=== PATIENT | male | born 1945 | race Hispanic/Latino ===

== ENCOUNTER 2023-02-17 16:38 | Inpatient (IN) | payer MEDICARE, MEDICAID ==
[2023-02-17 17:24] LABS: #Monocytes 0.9 thou/uL (0.11-0.59); #Neutrophils 7.9 thou/uL (1.40-6.50); %Basophils 0.2 % (0.0-1.0); %Eosinophils 0.4 % (0.0-10.0); %Lymphocytes 15.6 % (21.0-51.0); %Monocytes 8.7 % (0.0-10.0); %Neutrophils 74.8 % (42.0-75.0); Hemoglobin 15.6 g/dL (14.0-18.0); Mean Corpuscular HGB CONC 32.7 g/dL (32.0-36.0); Mean Corpuscular Hemoglobin 26.7 pg (27.0-31.0); Mean Corpuscular Volume 81.7 fl (78.0-98.0); Mean Platelet Volume 9.9 fL (7.4-10.4); Platelet Count 259 10x3/uL (130-400); RBC Distribution Width 14.8 % (11.5-14.5); Red Blood Cell (RBC) Count 5.84 mill/uL (4.70-6.10); White Blood Cell (WBC) Count 10.5 10x3/uL (4.8-10.8)
[2023-02-17 18:04] LABS: ALT (SGPT) 13 U/L (8-55); AST (SGOT) 18 U/L (5-34); Albumin 4.4 g/dL (3.4-4.8); Alkaline Phosphatase 51 U/L (40-110); Anion Gap 19 mmol/L (10-20); BUN (Urea Nitrogen) 36 mg/dL (8.4-25.7); Bilirubin, Total 1.2 mg/dL (0.2-1.2); CK (CPK) 107 U/L (30-200); Calc. Creatinine Clearance 0 mL/min (70-130); Calcium 10.2 mg/dL (7.8-10.44); Carbon Dioxide 22 mmol/L (23-31); Chloride 103 mmol/L (98-107); Estimated GFR 45; Globulin 3.4 g/dL (2.4-3.5); Glucose 88 mg/dL (83-110); Potassium 4.5 mmol/L (3.5-5.1); Protein, Total 7.8 g/dL (5.8-8.1); Sodium 139 mmol/L (136-145)
[2023-02-17 18:09] LABS: CKMB 1.7 ng/mL (0-6.6)
[2023-02-17] MEDS ORDERED: Aspirin Chewable 81 MG TAB ONE (18:29)
[2023-02-17] MEDS ORDERED: Ondansetron ODT 4 MG TAB PO PRN (19:20)
[2023-02-17] MEDS ORDERED: hydrALAZINE 20 MG/ML VIAL SLOW IVP PRN (19:20)
[2023-02-17] MEDS ORDERED: Acetaminophen 650 MG Suppository PR PRN (19:20)
[2023-02-17] MEDS ORDERED: Ondansetron PF 4 MG/2 ML Vial IVP PRN (19:20)
[2023-02-17 20:46] VITALS: BMI 21.0
[2023-02-18 05:29] LABS: #Eosinphils 0.1 thou/uL (0.0-0.7); #Monocytes 0.9 thou/uL (0.11-0.59); #Neutrophils 9.1 thou/uL (1.40-6.50); %Basophils 0.3 % (0.0-1.0); %Lymphocytes 15.4 % (21.0-51.0); %Monocytes 7.6 % (0.0-10.0); %Neutrophils 75.4 % (42.0-75.0); Hemoglobin 14.1 g/dL (14.0-18.0); Mean Corpuscular HGB CONC 32.3 g/dL (32.0-36.0); Mean Corpuscular Hemoglobin 26.7 pg (27.0-31.0); Mean Corpuscular Volume 82.6 fl (78.0-98.0); Platelet Count 236 10x3/uL (130-400); Red Blood Cell (RBC) Count 5.29 mill/uL (4.70-6.10); White Blood Cell (WBC) Count 12.1 10x3/uL (4.8-10.8)
[2023-02-18 05:53] LABS: Anion Gap 16 mmol/L (10-20); BUN (Urea Nitrogen) 36 mg/dL (8.4-25.7); Calc. Creatinine Clearance 40 mL/min (70-130); Calcium 9.6 mg/dL (7.8-10.44); Carbon Dioxide 23 mmol/L (23-31); Cardiac Risk 6.4 (Less than 4.5); Chloride 104 mmol/L (98-107); Cholesterol 206 mg/dl (< 200 Desired); Estimated GFR 56; Glucose 73 mg/dL (83-110); HDL Cholesterol 32 mg/dL (>60 Neg Risk); LDL Cholesterol, Calculated 153 mg/dL; Sodium 139 mmol/L (136-145); Triglycerides 105 mg/dL (Less than 150)
[2023-02-18] MEDS: Aspirin 81 mg Enteric Coated Tablet PO SCH (08:50)
[2023-02-18] MEDS: Sodium Chloride 0.9% 1,000 ML IV SCH ×2 (08:50→21:46)
[2023-02-18] MEDS: Clopidogrel Bisulfate 75 MG TAB PO SCH (08:50)
[2023-02-18] MEDS: Atorvastatin Calcium 40 MG TAB PO SCH (21:46)
[2023-02-18] MEDS: Acetaminophen 325 MG TAB PO PRN (21:46)
[2023-02-19 06:09] LABS: Hemoglobin A1c 5.4 % (4.0-6.0)
[2023-02-19 06:30] LABS: ALT (SGPT) 8 U/L (8-55); AST (SGOT) 12 U/L (5-34); Albumin 3.6 g/dL (3.4-4.8); Alkaline Phosphatase 42 U/L (40-110); Anion Gap 11 mmol/L (10-20); BUN (Urea Nitrogen) 27 mg/dL (8.4-25.7); Calc. Creatinine Clearance 42 mL/min (70-130); Calcium 8.9 mg/dL (7.8-10.44); Carbon Dioxide 25 mmol/L (23-31); Chloride 105 mmol/L (98-107); Estimated GFR 59; Globulin 2.4 g/dL (2.4-3.5); Glucose 78 mg/dL (83-110); Magnesium 1.8 mg/dL (1.6-2.6); Potassium 3.8 mmol/L (3.5-5.1); Sodium 137 mmol/L (136-145)
[2023-02-19 06:31] LABS: #Eosinphils 0.2 thou/uL (0.0-0.7); #Monocytes 0.9 thou/uL (0.11-0.59); #Neutrophils 6.6 thou/uL (1.40-6.50); %Basophils 0.3 % (0.0-1.0); %Eosinophils 2.1 % (0.0-10.0); %Lymphocytes 17.1 % (21.0-51.0); %Monocytes 9.8 % (0.0-10.0); %Neutrophils 70.4 % (42.0-75.0); Hemoglobin 13.1 g/dL (14.0-18.0); Mean Corpuscular HGB CONC 32.3 g/dL (32.0-36.0); Mean Corpuscular Hemoglobin 26.5 pg (27.0-31.0); Mean Platelet Volume 10.2 fL (7.4-10.4); Platelet Count 222 10x3/uL (130-400); RBC Distribution Width 14.7 % (11.5-14.5); Red Blood Cell (RBC) Count 4.95 mill/uL (4.70-6.10); White Blood Cell (WBC) Count 9.4 10x3/uL (4.8-10.8)
[2023-02-19] MEDS: Clopidogrel Bisulfate 75 MG TAB PO SCH (09:11)
[2023-02-19] MEDS: Aspirin 81 mg Enteric Coated Tablet PO SCH (09:11)
[2023-02-19] MEDS: Acetaminophen 325 MG TAB PO PRN (09:11)
[2023-02-19] MEDS: Atorvastatin Calcium 40 MG TAB PO SCH (20:15)
[2023-02-20] MEDS ORDERED: Bisacodyl 5 MG TAB PO PRN (03:46)
[2023-02-20] MEDS: Senokot S 8.6-50 MG TAB PO PRN (03:53)
[2023-02-20] MEDS: Aspirin 81 mg Enteric Coated Tablet PO SCH (08:18)
[2023-02-20] MEDS: Clopidogrel Bisulfate 75 MG TAB PO SCH (08:18)
[2023-02-20] MEDS ORDERED: Lisinopril/Hydrochlorothiazide 20 mg/12.5 mg Tablet PO SCH (09:00)
[2023-02-20] MEDS: Acetaminophen 500 MG TAB PO SCH ×2 (12:10→20:07)
[2023-02-20] MEDS: Atorvastatin Calcium 40 MG TAB PO SCH (20:07)
[2023-02-21] MEDS: Aspirin 81 mg Enteric Coated Tablet PO SCH ×2 (09:10→09:17)
[2023-02-21] MEDS: Lisinopril 20 MG TAB PO SCH ×2 (09:10→09:17)
[2023-02-21] MEDS: Clopidogrel Bisulfate 75 MG TAB PO SCH ×2 (09:10→09:17)
[2023-02-21] MEDS: Acetaminophen 500 MG TAB PO SCH ×4 (09:10→20:31)
[2023-02-21] MEDS ORDERED: Metoprolol Tartrate 25 MG TAB PO SCH (17:44)
[2023-02-21] MEDS: Atorvastatin Calcium 40 MG TAB PO SCH (20:31)
[2023-02-22] MEDS: Melatonin 3 MG TAB PO PRN ×2 (02:03→20:26)
[2023-02-22 06:13] LABS: #Eosinphils 0.2 thou/uL (0.0-0.7); #Monocytes 0.7 thou/uL (0.11-0.59); #Neutrophils 4.8 thou/uL (1.40-6.50); %Basophils 0.4 % (0.0-1.0); %Eosinophils 2.9 % (0.0-10.0); %Lymphocytes 27.6 % (21.0-51.0); %Monocytes 8.5 % (0.0-10.0); %Neutrophils 60.2 % (42.0-75.0); Hemoglobin 14.1 g/dL (14.0-18.0); Mean Corpuscular HGB CONC 32.6 g/dL (32.0-36.0); Mean Corpuscular Hemoglobin 27.1 pg (27.0-31.0); Mean Corpuscular Volume 83.1 fl (78.0-98.0); Platelet Count 254 10x3/uL (130-400); RBC Distribution Width 14.9 % (11.5-14.5); Red Blood Cell (RBC) Count 5.21 mill/uL (4.70-6.10)
[2023-02-22 06:37] LABS: Anion Gap 9 mmol/L (10-20); BUN (Urea Nitrogen) 28 mg/dL (8.4-25.7); Calc. Creatinine Clearance 51 mL/min (70-130); Calcium 9.8 mg/dL (7.8-10.44); Carbon Dioxide 28 mmol/L (23-31); Chloride 105 mmol/L (98-107); Estimated GFR 75; Glucose 90 mg/dL (83-110); Phosphorus 3.3 mg/dL (2.3-4.7); Potassium 4.3 mmol/L (3.5-5.1); Sodium 138 mmol/L (136-145)
[2023-02-22] MEDS: Acetaminophen 500 MG TAB PO SCH ×3 (09:02→20:26)
[2023-02-22] MEDS: Aspirin 81 mg Enteric Coated Tablet PO SCH ×2 (09:02→09:07)
[2023-02-22] MEDS: Metoprolol Tartrate 25 MG TAB PO SCH ×2 (09:03→20:25)
[2023-02-22] MEDS: Lisinopril 20 MG TAB PO SCH (09:03)
[2023-02-22] MEDS: Clopidogrel Bisulfate 75 MG TAB PO SCH (09:04)
[2023-02-22] MEDS ORDERED: Aspirin Chewable 81 MG TAB PO SCH (09:15)
[2023-02-22] MEDS: Atorvastatin Calcium 40 MG TAB PO SCH (20:26)
[2023-02-22] MEDS: Senokot S 8.6-50 MG TAB PO PRN (20:26)
[2023-02-23] MEDS ORDERED: Aspirin Chewable 81 MG TAB PO SCH (09:00)
[2023-02-23] MEDS: Acetaminophen 500 MG TAB PO SCH ×2 (09:17→15:45)
[2023-02-23] MEDS: Metoprolol Tartrate 25 MG TAB PO SCH (09:18)
[2023-02-23] MEDS: Lisinopril 20 MG TAB PO SCH (09:18)
[2023-02-23] MEDS: Clopidogrel Bisulfate 75 MG TAB PO SCH (09:18)
[2023-02-23 19:35] VITALS: BP 131/65; TEMP 98
== END 2023-02-23 20:05 | DRG 65 ==
LOC: ERS 16:38 → NEURO 18:31 → OBSVTOIN 02-18 08:35
PROVIDERS: ADMIT Student in an Organized Health Care Education/Training Program; ATTEND Internal Medicine
DX: I63.9 Cerebral infarction, unspecified (principal); G81.91 Hemiplegia, unspecified affecting right dominant side; N17.9 Acute kidney failure, unspecified; I47.20 Ventricular tachycardia, unspecified; R45.851 Suicidal ideations; I10 Essential (primary) hypertension; I25.10 Atherosclerotic heart disease of native coronary artery without angina pectoris; R13.10 Dysphagia, unspecified; R47.1 Dysarthria and anarthria; Z79.899 Other long term (current) drug therapy; F17.210 Nicotine dependence, cigarettes, uncomplicated; Z90.79 Acquired absence of other genital organ(s); R29.810 Facial weakness; E78.5 Hyperlipidemia, unspecified; R77.8 Other specified abnormalities of plasma proteins; Z66 Do not resuscitate
CPT/HCPCS: 36415; 51701; 51798; 70450; 70551; 71045; 74230; 80048; 80053; 80061; 82550; 82553; 83036; 83735; 83880; 84100; 84443; 84484; 85025; 93005; 93010; 93306; 93880; 94760; 95712; 95819; 95957; G0378; J7050

== ENCOUNTER 2023-03-22 09:57 | Inpatient (IN) | payer MEDICARE, MEDICAID ==
[2023-03-22 10:39] LABS: #Eosinphils 0.2 thou/uL (0.0-0.7); #Monocytes 0.9 thou/uL (0.11-0.59); #Neutrophils 7.1 thou/uL (1.40-6.50); %Basophils 0.3 % (0.0-1.0); %Eosinophils 2.3 % (0.0-10.0); %Lymphocytes 13.5 % (21.0-51.0); %Monocytes 9.7 % (0.0-10.0); %Neutrophils 73.9 % (42.0-75.0); Hemoglobin 12.8 g/dL (14.0-18.0); Mean Corpuscular HGB CONC 32.2 g/dL (32.0-36.0); Mean Corpuscular Hemoglobin 27.1 pg (27.0-31.0); Mean Corpuscular Volume 84.1 fl (78.0-98.0); Mean Platelet Volume 9.7 fL (7.4-10.4); Platelet Count 238 10x3/uL (130-400); RBC Distribution Width 15.6 % (11.5-14.5); Red Blood Cell (RBC) Count 4.72 mill/uL (4.70-6.10); White Blood Cell (WBC) Count 9.6 10x3/uL (4.8-10.8)
[2023-03-22 11:04] LABS: ALT (SGPT) 17 U/L (8-55); AST (SGOT) 16 U/L (5-34); Alkaline Phosphatase 64 U/L (40-110); Anion Gap 14 mmol/L (10-20); BUN (Urea Nitrogen) 24 mg/dL (8.4-25.7); Bilirubin, Total 0.8 mg/dL (0.2-1.2); Calc. Creatinine Clearance 0 mL/min (70-130); Calcium 9.4 mg/dL (7.8-10.44); Carbon Dioxide 25 mmol/L (23-31); Chloride 108 mmol/L (98-107); Estimated GFR 60; Globulin 2.3 g/dL (2.4-3.5); Glucose 96 mg/dL (83-110); Potassium 4.6 mmol/L (3.5-5.1); Protein, Total 6.3 g/dL (5.8-8.1); Sodium 142 mmol/L (136-145)
[2023-03-22 11:26] LABS: CKMB 1.7 ng/mL (0-6.6)
[2023-03-22] MEDS ORDERED: Aspirin 325 MG TAB ONE (11:31)
[2023-03-22] MEDS ORDERED: Ondansetron PF 4 MG/2 ML Vial IVP PRN (13:02)
[2023-03-22] MEDS ORDERED: Ondansetron ODT 4 MG TAB PO PRN (13:02)
[2023-03-22 15:36] LABS: Troponin I 0.039 ng/mL (< 0.028)
[2023-03-22 17:37] VITALS: BMI 21.4
[2023-03-23 04:45] LABS: #Eosinphils 0.4 thou/uL (0.0-0.7); #Monocytes 0.8 thou/uL (0.11-0.59); #Neutrophils 5.4 thou/uL (1.40-6.50); %Basophils 0.5 % (0.0-1.0); %Eosinophils 4.4 % (0.0-10.0); %Lymphocytes 19.9 % (21.0-51.0); Mean Corpuscular HGB CONC 32.2 g/dL (32.0-36.0); Mean Corpuscular Volume 83.8 fl (78.0-98.0); Mean Platelet Volume 10.3 fL (7.4-10.4); Platelet Count 234 10x3/uL (130-400); RBC Distribution Width 15.4 % (11.5-14.5); Red Blood Cell (RBC) Count 4.45 mill/uL (4.70-6.10); White Blood Cell (WBC) Count 8.3 10x3/uL (4.8-10.8)
[2023-03-23 05:05] LABS: Anion Gap 14 mmol/L (10-20); BUN (Urea Nitrogen) 25 mg/dL (8.4-25.7); Calc. Creatinine Clearance 49 mL/min (70-130); Calcium 9.3 mg/dL (7.8-10.44); Carbon Dioxide 24 mmol/L (23-31); Chloride 106 mmol/L (98-107); Estimated GFR 71; Glucose 87 mg/dL (83-110); Potassium 4.6 mmol/L (3.5-5.1); Sodium 139 mmol/L (136-145)
[2023-03-23] MEDS: Atorvastatin Calcium 40 MG TAB PO SCH (20:42)
[2023-03-23] MEDS: Lisinopril/Hydrochlorothiazide 20 mg/12.5 mg Tablet PO SCH (20:42)
[2023-03-24 05:45] LABS: #Basophils 0.1 thou/uL (0.0-0.2); #Eosinphils 0.3 thou/uL (0.0-0.7); #Monocytes 0.9 thou/uL (0.11-0.59); %Basophils 0.6 % (0.0-1.0); %Eosinophils 3.9 % (0.0-10.0); %Lymphocytes 17.1 % (21.0-51.0); %Monocytes 10.3 % (0.0-10.0); %Neutrophils 67.8 % (42.0-75.0); Hemoglobin 12.6 g/dL (14.0-18.0); Mean Corpuscular HGB CONC 31.3 g/dL (32.0-36.0); Mean Corpuscular Volume 86.3 fl (78.0-98.0); Mean Platelet Volume 10.3 fL (7.4-10.4); Platelet Count 246 10x3/uL (130-400); Red Blood Cell (RBC) Count 4.67 mill/uL (4.70-6.10); White Blood Cell (WBC) Count 8.8 10x3/uL (4.8-10.8)
[2023-03-24 05:56] LABS: RBC Distribution Width 15.6 % (11.5-14.5)
[2023-03-24 06:30] LABS: Anion Gap 16 mmol/L (10-20); BUN (Urea Nitrogen) 28 mg/dL (8.4-25.7); Calc. Creatinine Clearance 41 mL/min (70-130); Calcium 9.3 mg/dL (7.8-10.44); Carbon Dioxide 23 mmol/L (23-31); Chloride 106 mmol/L (98-107); Estimated GFR 57; Glucose 94 mg/dL (83-110); Potassium 4.5 mmol/L (3.5-5.1); Sodium 140 mmol/L (136-145)
[2023-03-24] MEDS: Clopidogrel Bisulfate 75 MG TAB PO SCH (09:59)
[2023-03-24] MEDS: Aspirin 81 mg Enteric Coated Tablet PO SCH (09:59)
[2023-03-24] MEDS: Lisinopril/Hydrochlorothiazide 20 mg/12.5 mg Tablet PO SCH (09:59)
[2023-03-24] MEDS: Acetaminophen 325 MG TAB PO PRN (10:00)
[2023-03-24] MEDS: HYDROcodone/Acetaminophen 5/325 mg Tablet PO PRN (12:32)
[2023-03-24] MEDS: Gabapentin 100 MG CAP PO SCH ×2 (14:31→21:54)
[2023-03-24] MEDS: Atorvastatin Calcium 40 MG TAB PO SCH (21:53)
[2023-03-24] MEDS: Mirtazapine 15 MG Soltab PO SCH (21:54)
[2023-03-25 04:41] LABS: #Eosinphils 0.3 thou/uL (0.0-0.7); #Monocytes 0.8 thou/uL (0.11-0.59); %Basophils 0.5 % (0.0-1.0); %Eosinophils 4.4 % (0.0-10.0); %Lymphocytes 18.6 % (21.0-51.0); %Monocytes 10.3 % (0.0-10.0); %Neutrophils 65.8 % (42.0-75.0); Hemoglobin 12.4 g/dL (14.0-18.0); Mean Corpuscular HGB CONC 31.8 g/dL (32.0-36.0); Mean Corpuscular Hemoglobin 27.1 pg (27.0-31.0); Mean Corpuscular Volume 85.3 fl (78.0-98.0); Mean Platelet Volume 9.9 fL (7.4-10.4); Platelet Count 248 10x3/uL (130-400); RBC Distribution Width 15.3 % (11.5-14.5); Red Blood Cell (RBC) Count 4.57 mill/uL (4.70-6.10); White Blood Cell (WBC) Count 7.6 10x3/uL (4.8-10.8)
[2023-03-25] MEDS: HYDROcodone/Acetaminophen 5/325 mg Tablet PO PRN ×3 (05:36→21:05)
[2023-03-25 05:55] LABS: Anion Gap 13 mmol/L (10-20); BUN (Urea Nitrogen) 35 mg/dL (8.4-25.7); Calc. Creatinine Clearance 41 mL/min (70-130); Calcium 9.4 mg/dL (7.8-10.44); Carbon Dioxide 25 mmol/L (23-31); Chloride 102 mmol/L (98-107); Estimated GFR 58; Glucose 100 mg/dL (83-110); Potassium 4.2 mmol/L (3.5-5.1); Sodium 136 mmol/L (136-145)
[2023-03-25] MEDS: Gabapentin 100 MG CAP PO SCH ×3 (08:26→21:02)
[2023-03-25] MEDS: Lisinopril 20 MG TAB PO SCH (08:26)
[2023-03-25] MEDS: Acetaminophen 325 MG TAB PO PRN (08:27)
[2023-03-25] MEDS: Clopidogrel Bisulfate 75 MG TAB PO SCH (08:27)
[2023-03-25] MEDS: Aspirin 81 mg Enteric Coated Tablet PO SCH (08:27)
[2023-03-25] MEDS: Mirtazapine 15 MG Soltab PO SCH (21:05)
[2023-03-25] MEDS: Atorvastatin Calcium 40 MG TAB PO SCH (21:06)
[2023-03-26 05:35] LABS: #Eosinphils 0.4 thou/uL (0.0-0.7); #Monocytes 0.8 thou/uL (0.11-0.59); #Neutrophils 4.5 thou/uL (1.40-6.50); %Basophils 0.6 % (0.0-1.0); %Lymphocytes 19.8 % (21.0-51.0); %Monocytes 10.9 % (0.0-10.0); %Neutrophils 63.3 % (42.0-75.0); Hemoglobin 12.8 g/dL (14.0-18.0); Mean Corpuscular HGB CONC 31.3 g/dL (32.0-36.0); Mean Corpuscular Hemoglobin 26.6 pg (27.0-31.0); Mean Platelet Volume 10.3 fL (7.4-10.4); Platelet Count 273 10x3/uL (130-400); RBC Distribution Width 15.5 % (11.5-14.5); Red Blood Cell (RBC) Count 4.81 mill/uL (4.70-6.10); White Blood Cell (WBC) Count 7.2 10x3/uL (4.8-10.8)
[2023-03-26 06:01] LABS: Anion Gap 15 mmol/L (10-20); BUN (Urea Nitrogen) 40 mg/dL (8.4-25.7); Calc. Creatinine Clearance 45 mL/min (70-130); Calcium 9.3 mg/dL (7.8-10.44); Carbon Dioxide 26 mmol/L (23-31); Chloride 106 mmol/L (98-107); Estimated GFR 65; Glucose 96 mg/dL (83-110); Magnesium 2.3 mg/dL (1.6-2.6); Potassium 4.6 mmol/L (3.5-5.1); Sodium 142 mmol/L (136-145)
[2023-03-26] MEDS: HYDROcodone/Acetaminophen 5/325 mg Tablet PO PRN ×2 (06:29→20:55)
[2023-03-26] MEDS: Acetaminophen 325 MG TAB PO PRN (08:21)
[2023-03-26] MEDS: Gabapentin 100 MG CAP PO SCH ×3 (08:21→20:54)
[2023-03-26] MEDS: Lisinopril 20 MG TAB PO SCH (08:22)
[2023-03-26] MEDS: Clopidogrel Bisulfate 75 MG TAB PO SCH (08:22)
[2023-03-26] MEDS: Aspirin 81 mg Enteric Coated Tablet PO SCH (08:22)
[2023-03-26] MEDS: Atorvastatin Calcium 40 MG TAB PO SCH (20:54)
[2023-03-26] MEDS: Mirtazapine 15 MG Soltab PO SCH (20:54)
[2023-03-27] MEDS: HYDROcodone/Acetaminophen 5/325 mg Tablet PO PRN ×2 (02:34→20:10)
[2023-03-27] MEDS ORDERED: Acetaminophen 500 MG TAB PO SCH (04:30)
[2023-03-27 06:01] LABS: #Basophils 0.1 thou/uL (0.0-0.2); #Eosinphils 0.4 thou/uL (0.0-0.7); #Monocytes 0.7 thou/uL (0.11-0.59); #Neutrophils 4.9 thou/uL (1.40-6.50); %Basophils 0.7 % (0.0-1.0); %Eosinophils 5.1 % (0.0-10.0); %Lymphocytes 21.2 % (21.0-51.0); %Monocytes 9.2 % (0.0-10.0); %Neutrophils 63.5 % (42.0-75.0); Hemoglobin 12.5 g/dL (14.0-18.0); Mean Corpuscular HGB CONC 31.3 g/dL (32.0-36.0); Mean Corpuscular Hemoglobin 26.9 pg (27.0-31.0); Mean Corpuscular Volume 85.8 fl (78.0-98.0); Mean Platelet Volume 10.3 fL (7.4-10.4); Platelet Count 274 10x3/uL (130-400); RBC Distribution Width 15.7 % (11.5-14.5); Red Blood Cell (RBC) Count 4.65 mill/uL (4.70-6.10); White Blood Cell (WBC) Count 7.6 10x3/uL (4.8-10.8)
[2023-03-27 06:27] LABS: Anion Gap 15 mmol/L (10-20); BUN (Urea Nitrogen) 41 mg/dL (8.4-25.7); Calc. Creatinine Clearance 47 mL/min (70-130); Calcium 9.5 mg/dL (7.8-10.44); Carbon Dioxide 24 mmol/L (23-31); Chloride 108 mmol/L (98-107); Estimated GFR 68; Glucose 92 mg/dL (83-110); Potassium 4.6 mmol/L (3.5-5.1); Sodium 142 mmol/L (136-145)
[2023-03-27] MEDS: Clopidogrel Bisulfate 75 MG TAB PO SCH (08:51)
[2023-03-27] MEDS: Gabapentin 100 MG CAP PO SCH ×3 (08:51→20:09)
[2023-03-27] MEDS: Aspirin 81 mg Enteric Coated Tablet PO SCH (08:51)
[2023-03-27] MEDS: Lisinopril 20 MG TAB PO SCH (08:51)
[2023-03-27] MEDS: Senokot S 8.6-50 MG TAB PO SCH (20:08)
[2023-03-27] MEDS: Mirtazapine 15 MG Soltab PO SCH (20:09)
[2023-03-27] MEDS: Atorvastatin Calcium 40 MG TAB PO SCH (20:09)
[2023-03-28] MEDS: Lisinopril 20 MG TAB PO SCH (10:11)
[2023-03-28] MEDS: Aspirin 81 mg Enteric Coated Tablet PO SCH (10:12)
[2023-03-28] MEDS: Clopidogrel Bisulfate 75 MG TAB PO SCH (10:12)
[2023-03-28] MEDS: Gabapentin 100 MG CAP PO SCH ×3 (10:12→21:00)
[2023-03-28] MEDS: Senokot S 8.6-50 MG TAB PO SCH ×2 (10:12→21:01)
[2023-03-28] MEDS: Polyethylene Glycol 3350 17 GM Packet PO SCH (10:12)
[2023-03-28] MEDS: HYDROcodone/Acetaminophen 5/325 mg Tablet PO PRN (20:59)
[2023-03-28] MEDS: Mirtazapine 15 MG Soltab PO SCH (21:00)
[2023-03-28] MEDS: Atorvastatin Calcium 40 MG TAB PO SCH (21:00)
[2023-03-29] MEDS: HYDROcodone/Acetaminophen 5/325 mg Tablet PO PRN ×3 (02:16→15:36)
[2023-03-29] MEDS: Aspirin 81 mg Enteric Coated Tablet PO SCH (09:15)
[2023-03-29] MEDS: Clopidogrel Bisulfate 75 MG TAB PO SCH (09:16)
[2023-03-29] MEDS: Senokot S 8.6-50 MG TAB PO SCH ×2 (09:16→20:50)
[2023-03-29] MEDS: Gabapentin 100 MG CAP PO SCH ×3 (09:16→20:50)
[2023-03-29] MEDS: Lisinopril 20 MG TAB PO SCH (09:16)
[2023-03-29] MEDS: Polyethylene Glycol 3350 17 GM Packet PO SCH (09:16)
[2023-03-29] MEDS: Atorvastatin Calcium 40 MG TAB PO SCH (20:51)
[2023-03-29] MEDS: Mirtazapine 15 MG Soltab PO SCH (20:51)
[2023-03-30] MEDS: HYDROcodone/Acetaminophen 5/325 mg Tablet PO PRN ×2 (09:08→14:46)
[2023-03-30] MEDS: Gabapentin 100 MG CAP PO SCH ×3 (09:10→21:20)
[2023-03-30] MEDS: Clopidogrel Bisulfate 75 MG TAB PO SCH (09:10)
[2023-03-30] MEDS: Aspirin 81 mg Enteric Coated Tablet PO SCH (09:10)
[2023-03-30] MEDS: Lisinopril 20 MG TAB PO SCH (09:11)
[2023-03-30] MEDS: Senokot S 8.6-50 MG TAB PO SCH ×2 (09:11→21:19)
[2023-03-30] MEDS: Polyethylene Glycol 3350 17 GM Packet PO SCH (09:12)
[2023-03-30] MEDS: Mirtazapine 15 MG Soltab PO SCH (21:18)
[2023-03-30] MEDS: Atorvastatin Calcium 40 MG TAB PO SCH (21:19)
[2023-03-31] MEDS: HYDROcodone/Acetaminophen 5/325 mg Tablet PO PRN ×2 (01:49→08:55)
[2023-03-31] MEDS: Clopidogrel Bisulfate 75 MG TAB PO SCH (08:54)
[2023-03-31] MEDS: Gabapentin 100 MG CAP PO SCH ×2 (08:54→15:41)
[2023-03-31] MEDS: Polyethylene Glycol 3350 17 GM Packet PO SCH (08:54)
[2023-03-31] MEDS: Senokot S 8.6-50 MG TAB PO SCH ×2 (08:54→21:53)
[2023-03-31] MEDS: Lisinopril 20 MG TAB PO SCH (08:55)
[2023-03-31] MEDS: Aspirin 81 mg Enteric Coated Tablet PO SCH (08:55)
[2023-04-01] MEDS: Aspirin 81 mg Enteric Coated Tablet PO SCH (08:02)
[2023-04-01] MEDS: Senokot S 8.6-50 MG TAB PO SCH ×2 (08:02→20:27)
[2023-04-01] MEDS: Polyethylene Glycol 3350 17 GM Packet PO SCH (08:02)
[2023-04-01] MEDS: Lisinopril 20 MG TAB PO SCH (08:02)
[2023-04-01] MEDS: Acetaminophen 325 MG TAB PO PRN (20:27)
[2023-04-01] MEDS: Melatonin 3 MG TAB PO PRN (20:31)
[2023-04-02] MEDS: Lisinopril 20 MG TAB PO SCH (08:49)
[2023-04-02] MEDS: Aspirin 81 mg Enteric Coated Tablet PO SCH (08:50)
[2023-04-02] MEDS: Polyethylene Glycol 3350 17 GM Packet PO SCH (08:50)
[2023-04-02] MEDS: Senokot S 8.6-50 MG TAB PO SCH ×2 (08:50→21:49)
[2023-04-02] MEDS: Melatonin 3 MG TAB PO PRN (22:36)
[2023-04-03] MEDS: Aspirin 81 mg Enteric Coated Tablet PO SCH (09:22)
[2023-04-03] MEDS: Lisinopril 20 MG TAB PO SCH (09:22)
[2023-04-03] MEDS: Polyethylene Glycol 3350 17 GM Packet PO SCH (09:23)
[2023-04-03] MEDS: Senokot S 8.6-50 MG TAB PO SCH (09:24)
[2023-04-03 14:31] VITALS: TEMP 98.2
[2023-04-03 14:38] VITALS: BP 138/72
== END 2023-04-03 15:06 | DRG 552 ==
LOC: ERS 09:57 → ERHOLD 12:53 → OBSVTOIN 14:26 → 2NO 17:10 → T4-B 03-28 12:59
PROVIDERS: ADMIT Student in an Organized Health Care Education/Training Program; ATTEND Internal Medicine
DX: S22.089A Unspecified fracture of T11-T12 vertebra, initial encounter for closed fracture (principal); I69.351 Hemiplegia and hemiparesis following cerebral infarction affecting right dominant side; R53.81 Other malaise; I25.2 Old myocardial infarction; I25.10 Atherosclerotic heart disease of native coronary artery without angina pectoris; I10 Essential (primary) hypertension; F32.A Depression, unspecified; F17.210 Nicotine dependence, cigarettes, uncomplicated; Z66 Do not resuscitate; R77.8 Other specified abnormalities of plasma proteins; E78.5 Hyperlipidemia, unspecified; W19.XXXA Unspecified fall, initial encounter; Z79.899 Other long term (current) drug therapy; K59.00 Constipation, unspecified; I71.23 Aneurysm of the descending thoracic aorta, without rupture; Z51.5 Encounter for palliative care; N28.1 Cyst of kidney, acquired; D64.9 Anemia, unspecified; Z79.82 Long term (current) use of aspirin; Z90.79 Acquired absence of other genital organ(s)
CPT/HCPCS: 36415; 36416; 72100; 72128; 72131; 76770; 80048; 80053; 82553; 83605; 83735; 83880; 84484; 85025; 93005

== ENCOUNTER 2023-08-20 14:32 | Emergency (ER) | payer MEDICARE, MEDICAID ==
[~2023-08-20 14:32] MED LIST: Iopamidol-370 76% 500 ML MDV (1 ML CHARGE) ONE
[2023-08-20 15:17] LABS: #Basophils 0.1 thou/uL (0.0-0.2); #Eosinphils 0.2 thou/uL (0.0-0.7); #Neutrophils 9.8 thou/uL (1.40-6.50); %Basophils 0.4 % (0.0-1.0); %Eosinophils 1.7 % (0.0-10.0); %Lymphocytes 15.4 % (21.0-51.0); %Monocytes 7.9 % (0.0-10.0); %Neutrophils 74.2 % (42.0-75.0); Hematocrit 42.9 % (42.0-52.0); Hemoglobin 13.7 g/dL (14.0-18.0); Mean Corpuscular HGB CONC 31.9 g/dL (32.0-36.0); Mean Corpuscular Hemoglobin 25.6 pg (27.0-31.0); Mean Corpuscular Volume 80.2 fl (78.0-98.0); Platelet Count 293 10x3/uL (130-400); RBC Distribution Width 15.7 % (11.5-14.5); Red Blood Cell (RBC) Count 5.35 mill/uL (4.70-6.10); White Blood Cell (WBC) Count 13.2 10x3/uL (4.8-10.8)
[2023-08-20 15:24] LABS: PTT 29.4 sec (22.9-36.1); Prothrombin Time 13.6 sec (12.0-14.7)
[2023-08-20 15:35] LABS: ALT (SGPT) 8 U/L (8-55); AST (SGOT) 14 U/L (5-34); Albumin 3.8 g/dL (3.4-4.8); Alkaline Phosphatase 55 U/L (40-110); Anion Gap 16 mmol/L (10-20); BUN (Urea Nitrogen) 26 mg/dL (8.4-25.7); Bilirubin, Total 0.4 mg/dL (0.2-1.2); Calc. Creatinine Clearance 0 mL/min (70-130); Calcium 9.3 mg/dL (7.8-10.44); Carbon Dioxide 23 mmol/L (23-31); Chloride 108 mmol/L (98-107); Estimated GFR 51; Globulin 3.1 g/dL (2.4-3.5); Glucose 112 mg/dL (83-110); Potassium 4.7 mmol/L (3.5-5.1); Protein, Total 6.9 g/dL (5.8-8.1); Sodium 142 mmol/L (136-145)
== END 2023-08-20 21:29 | disposition home or self-care (01) ==
LOC: ERS 14:32
DX: I71.40 Abdominal aortic aneurysm, without rupture, unspecified (principal); K57.90 Diverticulosis of intestine, part unspecified, without perforation or abscess without bleeding; F17.210 Nicotine dependence, cigarettes, uncomplicated; I10 Essential (primary) hypertension; E78.5 Hyperlipidemia, unspecified; Z79.82 Long term (current) use of aspirin; Z79.899 Other long term (current) drug therapy
CPT/HCPCS: 36415; 74177; 80053; 85025; 85610; 85730; 86850; 86900; 86901; Q9967

== ENCOUNTER 2023-09-26 20:45 | Inpatient (IN) | payer OTHER, MEDICAID ==
[2023-09-26 21:04] LABS: Actual Bicarbonate (HCO3a) 24.4 mEq/L (22-28); Analyzer IN Cardio ER; Base Excess (BEa) -0.9 mEq/L (-2.0 to +3.0); CO2 Tension 42.8 mmHg (35.0-45.0); Calcium, Ionized (arterial) 1.17 mmol/L (1.12-1.30); Carboxyhemoglobin (COHb) 0.9 gm% (0.0-3.0); Hematocrit-ABG 38 % (42.0-52.0); Potassium - ABG Lab 3.74 mmol/L (3.70-5.30); pH, Arterial 7.374 (7.35-7.45)
[2023-09-26 21:05] LABS: Puncture Site LBA
[2023-09-26 21:17] LABS: #Monocytes 1.2 thou/uL (0.11-0.59); #Neutrophils 6.8 thou/uL (1.40-6.50); %Basophils 0.4 % (0.0-1.0); %Eosinophils 0.2 % (0.0-10.0); %Lymphocytes 22.3 % (21.0-51.0); %Monocytes 11.9 % (0.0-10.0); %Neutrophils 64.8 % (42.0-75.0); Hematocrit 39.7 % (42.0-52.0); Hemoglobin 12.3 g/dL (14.0-18.0); Mean Corpuscular Hemoglobin 26.1 pg (27.0-31.0); Mean Corpuscular Volume 84.3 fl (78.0-98.0); Mean Platelet Volume 10.3 fL (7.4-10.4); Platelet Count 245 10x3/uL (130-400); RBC Distribution Width 16.5 % (11.5-14.5); Red Blood Cell (RBC) Count 4.71 mill/uL (4.70-6.10); White Blood Cell (WBC) Count 10.4 10x3/uL (4.8-10.8)
[2023-09-26 21:43] LABS: ALT (SGPT) 12 U/L (8-55); AST (SGOT) 23 U/L (5-34); Albumin 4.4 g/dL (3.4-4.8); Alkaline Phosphatase 53 U/L (40-110); Anion Gap 15 mmol/L (10-20); BUN (Urea Nitrogen) 19 mg/dL (8.4-25.7); Bilirubin, Total 0.7 mg/dL (0.2-1.2); Calc. Creatinine Clearance 0 mL/min (70-130); Calcium 8.9 mg/dL (7.8-10.44); Carbon Dioxide 23 mmol/L (23-31); Chloride 104 mmol/L (98-107); Estimated GFR 61; Globulin 2.9 g/dL (2.4-3.5); Glucose 120 mg/dL (83-110); Potassium 3.8 mmol/L (3.5-5.1); Protein, Total 7.3 g/dL (5.8-8.1); Sodium 138 mmol/L (136-145)
[2023-09-26] MEDS ORDERED: Vancomycin 1 GM/200 ML (FROZEN) BAG ONE (21:43)
[2023-09-26] MEDS ORDERED: Cefepime 2 GM VIAL ONE (21:43)
[2023-09-26] MEDS ORDERED: Sodium Chloride 0.9% 100 ML ONE (21:43)
[2023-09-26] MEDS ORDERED: Ondansetron PF 4 MG/2 ML Vial ONE (21:43)
[2023-09-26 21:50] LABS: Troponin I 0.085 ng/mL (< 0.028)
[2023-09-26 21:53] LABS: INR-International Normal Ratio 1.1; PTT 43.2 sec (22.9-36.1); Prothrombin Time 14.3 sec (12.0-14.7)
[2023-09-26] MEDS ORDERED: Clindamycin/D5W 900 MG in Premix 1 BAG IVPB SCH (22:00)
[2023-09-26 22:02] LABS: Bacteria/HPF None Seen HPF (None Seen); Bilirubin Negative (Negative); Blood, Urine 1+ (Negative); CAUTI Indications for Culture Fever or rigors; Clarity Clear (Clear); Glucose, Urine (Dipstick) Normal (Negative); Ketone, Urine Negative (Negative); Leukocyte Negative Leu/uL (Negative); Nitrite Negative (Negative); Protein, Urine (Dipstick) 50 mg/dL (Neg-Trace); RBC/HPF 0-3 HPF (0-3); Specific Gravity, Urine 1.016 (1.002-1.036); Squamous Epithelial None Seen HPF (0-3); Urobilinogen Normal mg/dL (Less than 2); WBC/HPF 0-3 HPF (0-3); pH, Urine 5.5 (5.0-9.0)
[2023-09-26 22:05] LABS: Urine Culture Reflex No No
[2023-09-26 22:18] LABS: SARS-CoV-2 NAA Rapid Test DETECTED (NotDetected)
[2023-09-26] MEDS ORDERED: Acetaminophen 325 MG TAB ONE (23:00)
[2023-09-26] MEDS ORDERED: Aspirin Chewable 81 MG TAB ONE (23:00)
[2023-09-26] MEDS ORDERED: Acetaminophen 650 MG Suppository ONE (23:08)
[2023-09-26] MEDS ORDERED: Aspirin 300 MG Suppository ONE (23:08)
[2023-09-26] MEDS ORDERED: Acetaminophen 650 MG Suppository PR PRN (23:10)
[2023-09-26] MEDS ORDERED: Acetaminophen 325 MG TAB PO PRN (23:10)
[2023-09-26] MEDS ORDERED: Ondansetron PF 4 MG/2 ML Vial IVP PRN (23:10)
[2023-09-26] MEDS ORDERED: Ondansetron ODT 4 MG TAB PO PRN (23:10)
[2023-09-27 02:02] VITALS: BMI 23.6
[2023-09-27] MEDS ORDERED: Piperacillin/Tazobactam 3.375 GM in Sodium Chloride 0.9% 100 ML IVPB SCH ×2 (02:15→06:00)
[2023-09-27] MEDS ORDERED: Albuterol 200 PUFF (6.7GM INHALER) INH PRN ×2 (02:16→07:08)
[2023-09-27 02:34] LABS: Hematocrit 35.9 % (42.0-52.0); Hemoglobin 11.3 g/dL (14.0-18.0); Manual Diff?? YES; Mean Corpuscular HGB CONC 31.5 g/dL (32.0-36.0); Mean Corpuscular Hemoglobin 26.2 pg (27.0-31.0); Mean Corpuscular Volume 83.1 fl (78.0-98.0); Mean Platelet Volume 10.5 fL (7.4-10.4); Platelet Count 215 10x3/uL (130-400); RBC Distribution Width 15.9 % (11.5-14.5); Red Blood Cell (RBC) Count 4.32 mill/uL (4.70-6.10); White Blood Cell (WBC) Count 8.4 10x3/uL (4.8-10.8)
[2023-09-27 02:38] LABS: Delete Auto Diff?? YES
[2023-09-27] MEDS ORDERED: Dexamethasone 10 MG/ML VIAL SLOW IVP SCH (03:00)
[2023-09-27] MEDS ORDERED: REMDESIVIR 200 MG in Sodium Chloride 0.9% 250 ML 210 ML IV SCH (03:00)
[2023-09-27 03:02] LABS: Troponin I 0.121 ng/mL (< 0.028)
[2023-09-27 03:03] LABS: Anion Gap 16 mmol/L (10-20); BUN (Urea Nitrogen) 17 mg/dL (8.4-25.7); Calc. Creatinine Clearance 49 mL/min (70-130); Carbon Dioxide 16 mmol/L (23-31); Chloride 110 mmol/L (98-107); Estimated GFR 65; Glucose 124 mg/dL (83-110); Potassium 3.9 mmol/L (3.5-5.1); Sodium 138 mmol/L (136-145)
[2023-09-27 05:55] LABS: Troponin I 0.126 ng/mL (< 0.028)
[2023-09-27 06:11] LABS: Band 46 % (5-11); CellaVision Operator ID LAB.JMM; Hypochromia SLIGHT = 6-15 cells HPF (0-5); Large Platelets 6.9 % (0-5); Lymphocytes 3 % (21-51); Monocytes 3 % (0-10); Neutrophil 48 % (42-75); Platelet Adequacy Comment Platelets Normal; Polychromasia SLIGHT = 2-3 cells HPF (0-2); Reactive Lymphocytes 1 % (0-10); Smudge Cells 6.9 %; Total Cell Count 101
[2023-09-27] MEDS ORDERED: Acetaminophen 650 MG Suppository PR PRN (07:08)
[2023-09-27] MEDS ORDERED: Acetaminophen 325 MG TAB PO PRN (07:08)
[2023-09-27] MEDS ORDERED: Benzonatate 100 MG CAP PO PRN (07:08)
[2023-09-27] MEDS: Ascorbic Acid 500 mg Chewable Tablet PO SCH (08:46)
[2023-09-27] MEDS: Zinc Sulfate 220 MG CAP PO SCH (08:46)
[2023-09-27] MEDS: Enoxaparin 40 MG (0.4 mL) SYRINGE SC SCH (08:57)
[2023-09-27] MEDS: Cholecalciferol (Vitamin D3) 400 UNITS TAB PO SCH (08:57)
[2023-09-27] MEDS: Famotidine/PF 20 mg/2ml Vial SLOW IVP SCH (08:57)
[2023-09-27] MEDS ORDERED: FLU VACC QS2023(65UP)/MF59C/PF 60 MCG/0.5 ML SYRINGE IM ONE (09:00)
[2023-09-27] MEDS ORDERED: Pantoprazole 40 MG VIAL IVP SCH ×2 (09:00)
[2023-09-27] MEDS: Piperacillin/Tazobactam 3.375 GM in Sodium Chloride 0.9% 100 ML IVPB SCH ×2 (09:16→17:53)
[2023-09-27] MEDS ORDERED: Melatonin 3 MG TAB PO SCH (22:00)
[2023-09-28] MEDS: Piperacillin/Tazobactam 3.375 GM in Sodium Chloride 0.9% 100 ML IVPB SCH ×3 (02:05→17:43)
[2023-09-28 06:46] LABS: ALT (SGPT) 10 U/L (8-55); AST (SGOT) 20 U/L (5-34)
[2023-09-28] MEDS: Dexamethasone 10 MG/ML VIAL SLOW IVP SCH (08:25)
[2023-09-28] MEDS: Famotidine/PF 20 mg/2ml Vial SLOW IVP SCH (08:25)
[2023-09-28] MEDS: Enoxaparin 40 MG (0.4 mL) SYRINGE SC SCH (08:25)
[2023-09-28] MEDS: Ascorbic Acid 500 mg Chewable Tablet PO SCH (08:26)
[2023-09-28] MEDS: Zinc Sulfate 220 MG CAP PO SCH (08:26)
[2023-09-28] MEDS: Cholecalciferol (Vitamin D3) 400 UNITS TAB PO SCH (08:26)
[2023-09-28] MEDS: REMDESIVIR 100 MG in Sodium Chloride 0.9% 250 ML 230 ML IV SCH (08:26)
[2023-09-28] MEDS: Lisinopril 20 MG TAB PO SCH (20:01)
[2023-09-28] MEDS: Mirtazapine 15 MG TAB PO SCH (20:01)
[2023-09-29] MEDS: Piperacillin/Tazobactam 3.375 GM in Sodium Chloride 0.9% 100 ML IVPB SCH ×3 (01:50→18:34)
[2023-09-29 06:09] LABS: Hematocrit 36.4 % (42.0-52.0); Hemoglobin 11.2 g/dL (14.0-18.0); Manual Diff?? YES; Mean Corpuscular HGB CONC 30.8 g/dL (32.0-36.0); Mean Corpuscular Hemoglobin 25.5 pg (27.0-31.0); Mean Corpuscular Volume 82.9 fl (78.0-98.0); Mean Platelet Volume 11.5 fL (7.4-10.4); Platelet Count 242 10x3/uL (130-400); RBC Distribution Width 16.3 % (11.5-14.5); Red Blood Cell (RBC) Count 4.39 mill/uL (4.70-6.10); White Blood Cell (WBC) Count 14.7 10x3/uL (4.8-10.8)
[2023-09-29 06:20] LABS: ALT (SGPT) 11 U/L (8-55); AST (SGOT) 16 U/L (5-34); Anion Gap 14 mmol/L (10-20); BUN (Urea Nitrogen) 31 mg/dL (8.4-25.7); Calc. Creatinine Clearance 51 mL/min (70-130); Calcium 8.5 mg/dL (7.8-10.44); Carbon Dioxide 23 mmol/L (23-31); Chloride 107 mmol/L (98-107); Estimated GFR 68; Glucose 87 mg/dL (83-110); Potassium 4.3 mmol/L (3.5-5.1); Sodium 140 mmol/L (136-145)
[2023-09-29 06:40] LABS: Delete Auto Diff?? YES
[2023-09-29 07:11] LABS: Anisocytosis SLIGHT = 6-15 cells HPF (0-5); Band 32 % (5-11); Burr Cells SLIGHT = 2-5 cells HPF (0-1); CellaVision Operator ID LAB.JMM; Large Platelets 14.7 % (0-5); Lymphocytes 4 % (21-51); Macrocytosis SLIGHT = 6-15 cells HPF (0-5); Monocytes 4 % (0-10); Neutrophil 59 % (42-75); Ovalocytes SLIGHT = 2-5 cells HPF (0-1); Platelet Adequacy Comment Platelets Normal; Platelet Clumps 2.9 % (0-5); Reactive Lymphocytes 1 % (0-10); Smudge Cells 7.8 %; Target Cells SLIGHT = 2-5 cells HPF (0-1); Total Cell Count 102
[2023-09-29] MEDS: Enoxaparin 40 MG (0.4 mL) SYRINGE SC SCH (09:03)
[2023-09-29] MEDS: Famotidine/PF 20 mg/2ml Vial SLOW IVP SCH (09:03)
[2023-09-29] MEDS: Ascorbic Acid 500 mg Chewable Tablet PO SCH (09:04)
[2023-09-29] MEDS: Cholecalciferol (Vitamin D3) 400 UNITS TAB PO SCH (09:04)
[2023-09-29] MEDS: Dexamethasone 10 MG/ML VIAL SLOW IVP SCH (09:04)
[2023-09-29] MEDS: Lisinopril 20 MG TAB PO SCH ×2 (09:04→19:58)
[2023-09-29] MEDS: Zinc Sulfate 220 MG CAP PO SCH (09:04)
[2023-09-29] MEDS: REMDESIVIR 100 MG in Sodium Chloride 0.9% 250 ML 230 ML IV SCH (09:06)
[2023-09-29] MEDS ORDERED: Clopidogrel Bisulfate 75 MG TAB PO SCH (10:45)
[2023-09-29] MEDS ORDERED: Aspirin 81 mg Enteric Coated Tablet PO SCH (10:45)
[2023-09-29] MEDS: Mirtazapine 15 MG TAB PO SCH (19:59)
[2023-09-30] MEDS: Piperacillin/Tazobactam 3.375 GM in Sodium Chloride 0.9% 100 ML IVPB SCH ×3 (01:38→17:32)
[2023-09-30 06:32] LABS: ALT (SGPT) 11 U/L (8-55); AST (SGOT) 14 U/L (5-34)
[2023-09-30] MEDS: Aspirin 81 mg Enteric Coated Tablet PO SCH (08:52)
[2023-09-30] MEDS: Lisinopril 20 MG TAB PO SCH ×2 (08:52→20:57)
[2023-09-30] MEDS: Zinc Sulfate 220 MG CAP PO SCH (08:53)
[2023-09-30] MEDS: Clopidogrel Bisulfate 75 MG TAB PO SCH (08:53)
[2023-09-30] MEDS: Ascorbic Acid 500 mg Chewable Tablet PO SCH (08:53)
[2023-09-30] MEDS: Cholecalciferol (Vitamin D3) 400 UNITS TAB PO SCH (08:53)
[2023-09-30] MEDS: Enoxaparin 40 MG (0.4 mL) SYRINGE SC SCH (09:00)
[2023-09-30] MEDS: Dexamethasone 10 MG/ML VIAL SLOW IVP SCH (09:00)
[2023-09-30] MEDS: Famotidine/PF 20 mg/2ml Vial SLOW IVP SCH (09:00)
[2023-09-30] MEDS: REMDESIVIR 100 MG in Sodium Chloride 0.9% 250 ML 230 ML IV SCH (09:00)
[2023-09-30] MEDS: Mirtazapine 15 MG TAB PO SCH (20:57)
[2023-09-30] MEDS: Melatonin 3 MG TAB PO PRN (21:06)
[2023-10-01] MEDS: Piperacillin/Tazobactam 3.375 GM in Sodium Chloride 0.9% 100 ML IVPB SCH ×3 (01:39→18:58)
[2023-10-01 05:22] LABS: ALT (SGPT) 10 U/L (8-55); AST (SGOT) 13 U/L (5-34)
[2023-10-01] MEDS: Zinc Sulfate 220 MG CAP PO SCH (09:25)
[2023-10-01] MEDS: Cholecalciferol (Vitamin D3) 400 UNITS TAB PO SCH (09:25)
[2023-10-01] MEDS: Clopidogrel Bisulfate 75 MG TAB PO SCH (09:25)
[2023-10-01] MEDS: Ascorbic Acid 500 mg Chewable Tablet PO SCH (09:25)
[2023-10-01] MEDS: Aspirin 81 mg Enteric Coated Tablet PO SCH (09:25)
[2023-10-01] MEDS: Dexamethasone 10 MG/ML VIAL SLOW IVP SCH (09:25)
[2023-10-01] MEDS: Famotidine/PF 20 mg/2ml Vial SLOW IVP SCH (09:25)
[2023-10-01] MEDS: Lisinopril 20 MG TAB PO SCH ×2 (09:25→19:57)
[2023-10-01] MEDS: Enoxaparin 40 MG (0.4 mL) SYRINGE SC SCH (09:25)
[2023-10-01] MEDS: REMDESIVIR 100 MG in Sodium Chloride 0.9% 250 ML 230 ML IV SCH (09:27)
[2023-10-01] MEDS ORDERED: hydrALAZINE 20 MG/ML VIAL SLOW IVP PRN (12:35)
[2023-10-01] MEDS: Mirtazapine 15 MG TAB PO SCH (19:57)
[2023-10-01 20:00] VITALS: BP 193/91
[2023-10-01 20:04] VITALS: TEMP 98.6
[2023-10-01] MEDS: Melatonin 3 MG TAB PO PRN (21:08)
== END 2023-10-01 21:42 | DRG 177 ==
LOC: ERS 20:45 → ERHOLD 22:46 → IMCU/EMU 09-27 01:35 → T4-A 09-30 18:57
PROVIDERS: ADMIT Student in an Organized Health Care Education/Training Program; ATTEND Hospitalist
PROC: 4A033R1 Measurement of Arterial Saturation, Peripheral, Percutaneous Approach (ICD-10-PCS; principal; 2023-09-26)
PROC: 8E0ZXY6 Isolation (ICD-10-PCS; 2023-09-26)
PROC: XW033E5 Introduction of Remdesivir Anti-infective into Peripheral Vein, Percutaneous Approach, New Technology Group 5 (ICD-10-PCS; 2023-09-27)
PROC: 3E0333Z Introduction of Anti-inflammatory into Peripheral Vein, Percutaneous Approach (ICD-10-PCS; 2023-09-27)
PROC: 5A0935A Assistance with Respiratory Ventilation, Less than 24 Consecutive Hours, High Flow/Velocity Cannula (ICD-10-PCS; 2023-09-27)
DX: U07.1 COVID-19 (principal); J12.82 Pneumonia due to coronavirus disease 2019; J96.01 Acute respiratory failure with hypoxia; I69.351 Hemiplegia and hemiparesis following cerebral infarction affecting right dominant side; I25.10 Atherosclerotic heart disease of native coronary artery without angina pectoris; Z66 Do not resuscitate; R77.8 Other specified abnormalities of plasma proteins; I10 Essential (primary) hypertension; Z79.899 Other long term (current) drug therapy; Z79.82 Long term (current) use of aspirin; Z98.890 Other specified postprocedural states; Z90.89 Acquired absence of other organs; I25.2 Old myocardial infarction
CPT/HCPCS: 36415; 36600; 51701; 71045; 80048; 80053; 81001; 82805; 83605; 83880; 84450; 84460; 84484; 85025; 85379; 85610; 85730; 87040; 87086; 93005; 94760; 96365; 96367; J0248; J0692; J1100; J1650; J2405; J2543; J3370-JW; J3490; J7050; S0028